=== PATIENT | female | born 1970 | race Caucasian/White ===

== ENCOUNTER → 2018-02-19 18:19 | Outpatient (REF) | payer OTHER, SELFPAY | LOC: NCHCN 18:19 | PROVIDERS: PCP Nurse Practitioner Family; Visit Provider Physician Assistant Medical | DX: J02.9 Acute pharyngitis, unspecified (principal) | CPT/HCPCS: 87077; 87070; 87186 ==

== ENCOUNTER 2021-03-15 12:45 | Outpatient (REF) | payer SELFPAY | END 2021-03-15 12:46 | disposition home or self-care (01) | LOC: NCHCN 12:45 | PROVIDERS: PCP Nurse Practitioner Family; Referring Provider Physician Assistant Medical; Visit Provider Physician Assistant Medical | DX: N39.0 Urinary tract infection, site not specified (principal) | CPT/HCPCS: 87077; 87086 ==

== ENCOUNTER 2021-08-04 17:49 | Outpatient (REF) | payer SELFPAY ==
[2021-08-05 12:26] LABS: COVID-19 RT-PCR UVMMC Result Negative (Negative)
== END 2021-08-04 17:50 | disposition home or self-care (01) ==
LOC: NCHCN 17:49
PROVIDERS: PCP Nurse Practitioner Family; Visit Provider Nurse Practitioner Family
DX: Z20.822 Contact with and (suspected) exposure to COVID-19 (principal); J02.9 Acute pharyngitis, unspecified; R51.9 Headache, unspecified
CPT/HCPCS: U0003

== ENCOUNTER 2022-05-03 23:26 | Outpatient (REF) | payer SELFPAY ==
[2022-05-03 21:16] LABS: TSH (W/Ref FT4) 1.33 uIU/mL (0.36-3.74)
[2022-05-04 18:24] LABS: Estradiol <12 pg/mL (See Note)
[2022-05-04 19:42] LABS: FSH 103.7 mIU/mL (See Note)
== END 2022-05-03 23:27 | disposition home or self-care (01) ==
LOC: NCHCN 23:26
PROVIDERS: PCP Nurse Practitioner Family; Visit Provider Physician Assistant Medical
DX: F32.9 Major depressive disorder, single episode, unspecified (principal); N95.1 Menopausal and female climacteric states
CPT/HCPCS: 82670; 83001; 84443

== ENCOUNTER → 2022-05-24 01:25 | Outpatient (CLI) | payer SELFPAY ==
--- NOTE | 2022-05-24 | DI.MAMMO_ITS ---
Exam(s) MAMMO SCREENING EXAM: MAMMO SCREENING CLINICAL HISTORY: SCREENING FOR BREAST CANCER Z12.31 TECHNIQUE: Mammograms were interpreted according to the usual protocol including computer analysis w Pixafy system, tomosynthesis and C-view imaging. COMPARISON: FINDINGS: The breasts are of moderate density with fairly symmetrical distribution of fibroglandular tissue. N o dominant mass or clumped microcalcification is identified in either breast. Current examination is compared with previous examination of November 2012 and allowing for differences in technique there has been no gross interval change in appearance in comparison with the prior study. IMPRESSION: No specific evidence of malignancy at this time. Routine screening examinations are suggested at yea rly intervals in this age group according to the ACS ACR guidelines. BI-RADS Category 1 - Negative Breast Density - Category B - Scattered areas of fibroglandular density
== END ==
PROVIDERS: PCP Nurse Practitioner Family; Visit Provider Physician Assistant Medical
DX: Z12.31 Encounter for screening mammogram for malignant neoplasm of breast (principal)
CPT/HCPCS: 77063; 77067

== ENCOUNTER 2022-08-21 06:46 | Emergency (ER) | payer SELFPAY ==
[2022-08-21 06:50] VITALS: BP 151/82; PULSE 87; RESP 24; TEMP 37.1; O2SAT 97
--- NOTE | 2022-08-21 07:09 | ED.GENADUL_ITS ---
Discharge Plan Discharge Details Chief Complaint: Orthopedic Primary Care Provider: Jeaneth Bentley ED Provider: Ara Cast Home Meds and New Rx's Prescriptions: No Action sumatriptan succinate [Imitrex] 50 MG tablet 50 mg PO ONCE topiramate [Topamax] 25 MG tablet 25 mg PO BID CHANTIX 0.5 QD PROZAC 20 MG capsule 40 mg PO BID Medical Decision Making 0710 -- 52-year-old female presents with left ankle and foot pain after twisting her ankle last night while walking. She has tenderness to palpation to her left inferior and posterior lateral malleolus and left fifth metatarsal. She is neurovascularly intact and has no deformity. Will give a dose of ibuprofen and refer for x-rays. 0800 --Case endorsed to Dr. Young to follow-up on imaging. Medical Records Medical records reviewed: Yes I reviewed the patient's medical records. HPI General Mode of arrival: ambulatory . Date/Time Provider Initiated Documentation: 08/21/22 06:56 . Limitations to Documentation: no limitations . Information obtained by: patient . HPI Narrative: Patient is a 52-year-old female who presents with left ankle and foot pain after she twisted her ankle while walking last night. Patient took a narcotic medication that she had leftover from a previous prescription last night without significant relief. Patient states she can take ibuprofen but takes it sparingly due to history of heartburn and denies a history of allergy to NSAIDs. She has not taken any ibuprofen or Tylenol this morning. She denies any knee pain. She states she is having a difficulty weightbearing on her left leg due to pain. Related Data Home Medications Medication Instructions Recorded Confirmed Chantix 0.5 Qd 11/07/12 05/23/22 Prozac 40 mg PO BID 11/07/12 05/23/22 sumatriptan succinate 50 mg tablet 50 mg PO ONCE 11/07/12 05/23/22 (Imitrex) topiramate 25 mg tablet (Topamax) 25 mg PO BID 11/07/12 05/23/22 Allergies Allergy/AdvReac Type Severity Reaction Status Date / Time aspirin Allergy Mild Nausea Unverified 05/23/22 09:59 bupropion HCl Allergy Skin Rash Unverified 05/23/22 09:59 [From Wellbutrin] General Stated Complaint: Orthopedic KEVYN: 4 Review of Systems All systems reviewed & are unremarkable except as noted in HPI and below Constitutional Constitutional: Reports as per HPI, Denies chills and Denies fever(s) Eyes Eyes: Denies blurry vision ENT Ears, Nose, Mouth, and Throat: Denies dizziness, Denies sore throat and Denies throat swelling Cardiovascular Cardiovascular: Denies chest pain and Denies dyspnea Respiratory Respiratory: Denies cough and Denies dyspnea Gastrointestinal Gastrointestinal: Denies abdominal pain, Denies diarrhea and Denies vomiting Genitourinary Genitourinary: Denies hematuria and Denies dysuria Musculoskeletal Musculoskeletal: Denies back pain and Denies numbness Comments: left ankle and foot pain Integumentary/Breasts Skin/Breast: Denies lesions and Denies rash Neurologic Neurologic: Denies dizziness, Denies localized weakness and Denies numbness Allergic/Immunologic Allergic/Immunologic: Denies throat swelling [facility] Medical History Fibrocystic breast disease Glucose intolerance (impaired glucose tolerance) Surgical History (Updated 08/21/22 @ 07:20 by Ara Cast DO) Decompression for spinal stenosis EGD - IV Sedation (04/21/16) H/O shoulder surgery Rotator Cuff Repair Vaginal hysterectomy Social History Smoking/Tobacco Use Status: Former Tobacco Use Smoking risk assessment performed?: Yes Drug use: Never Exam Const General: cooperative, healthy appearing and no acute distress HENMT Head: normal to inspection Mouth: oral mucosae normal Eyes General: appearance normal, both eyes and all related structures Neck Neck: normal visual inspection Resp Effort & Inspection: normal respiratory effort and able to speak in complete sentences Cardio Rate: regular rate Skin General skin exam: no rashes or lesions noted Neuro General: patient alert, patient awake and patient oriented x3 Motor: muscle tone normal throughout Extrem General: normal to inspection Ankle/foot/toe images: 1. Tenderness to palpation to left inferior and posterior lateral malleolus and left fifth metatarsal. There is no significant edema, ecchymosis or erythema. Other: No tenderness to palpation to left medial malleolus, left heel. Left DP/PT pulses intact. No deformity noted. Psych Appearance: grossly normal Affect: normal affect Course Vital Signs Vital signs: Vital Signs Temperature 98.7 F 08/21/22 06:50 Pulse 87 08/21/22 06:50 Respiratory Rate 24 08/21/22 06:50 Blood Pressure 151/82 H 08/21/22 06:50 Pulse Oximetry 97 08/21/22 06:50 Temperature 98.7 F 08/21/22 06:50 Temperature Source Tympanic 08/21/22 06:50 Pulse 87 08/21/22 06:50 Respiratory Rate 24 08/21/22 06:50 Blood Pressure 151/82 H 08/21/22 06:50 Blood Pressure Position Sitting 08/21/22 06:50 Pulse Oximetry 97 08/21/22 06:50 Oxygen Delivery Method Room Air 08/21/22 06:50 Oxygen Flow Rate 0 08/21/22 06:50
[2022-08-21] MEDS: Ibuprofen 600 MG TAB PO (07:22)
--- NOTE | 2022-08-21 07:34 | DI.RAD_ITS ---
Exam(s) XR FOOT LT COMPLETE XR ANKLE LT COMPLETE EXAM: XR ANKLE LT COMPLETE CLINICAL HISTORY: twisted left ankle, r/o fx TECHNIQUE: 2D digital imaging was performed. Three views. COMPARISON: CR,XR XR FOOT LT COMPLETE from 08/21/2022 FINDINGS: BONES: There is a nondisplaced fracture at the base of the 5th metatarsal. No additional acute fract ures are seen. There is a small corticated bony density seen beneath the lateral malleolus likely se condary to old trauma. No bony destructive lesion is seen. JOINTS:The ankle mortise is normally aligned. SOFT TISSUE: No foreign body. IMPRESSION: Nondisplaced fracture base of 5th metatarsal. DATA REPOSITORY: RADIATION DOSE DELIVERED:
--- NOTE | 2022-08-21 07:53 | ED.PROG_ITS ---
Date of service: 08/21/22 Time of Service: 07:53 Medical Decision Making Care was signed out by Dr. Cast, please see her documentation regarding initial ED presentation course. X-ray of the left ankle and foot were reviewed and interpreted by me: No definite fracture. X-ray interpreted by radiology: Nondisplaced fracture of the base of the fifth metatarsal in the left foot. We will place patient in short ankle/foot boot and provided crutches. Patient was instructed to maintain nonweightbearing and follow-up with orthopedics. Sign Out Sign Out Data: Sign Out Comment: Follow-up on x-ray results. Last updated by Ara Cast DO at 08/21/22 07:46 Discharge Plan Disposition Patient Disposition: Home Discharge Details Clinical Impression: Fracture of fifth metatarsal bone of left foot Primary Care Provider: Jeaneth Bentley ED Provider: Brian Young Home Meds and New Rx's Prescriptions: Continued PROZAC 20 MG capsule 40 mg PO DAILY estradiol 0.5 mg tablet 0.5 mg PO DAILY Patient Comments: TAKE 1 TABLET BY MOUTH EVERY DAY Discontinued sumatriptan succinate [Imitrex] 50 MG tablet 50 mg PO ONCE Patient Comments: not taking topiramate [Topamax] 25 MG tablet 25 mg PO BID Patient Comments: not taking CHANTIX 0.5 QD Patient Comments: not taking Discharge Instructions Instructions: Foot Fracture in Adults (ED) Additional Instructions: Please use orthopedic boot and crutches. Do not bear weight on left foot. Please follow-up with orthopedics. Please take ibuprofen over the counter. Take 600mg by mouth every 6 hours as needed for pain. Please take acetaminophen (tylenol) - 650mg every 6 hours by mouth as needed for pain. Return to the ER immediately for any worsening or new concerning symptoms. Stand Alone Forms: Work Release Referrals: [facility] [Provider Group] Jeaneth Bentley PA [Primary Care Provider] -
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
== END 2022-08-21 08:20 | disposition home or self-care (01) ==
PROVIDERS: Emergency Provider Student in an Organized Health Care Education/Training Program; PCP Physician Assistant Medical
DX: S92.355A Nondisplaced fracture of fifth metatarsal bone, left foot, initial encounter for closed fracture (principal); X50.1XXA Overexertion from prolonged static or awkward postures, initial encounter; Y93.01 Activity, walking, marching and hiking
CPT/HCPCS: 99283; 73610; 73630; 99282

== ENCOUNTER 2022-09-04 11:10 | Outpatient (CLI) | payer SELFPAY ==
--- NOTE | 2022-09-04 11:00 | DI.RAD_ITS ---
Exam(s) XR FOOT LT COMPLETE EXAM: XR FOOT LT COMPLETE CLINICAL HISTORY: 5th metatarsal fracture. TECHNIQUE: 2D digital imaging was performed. Three views. COMPARISON: CR,XR XR FOOT LT COMPLETE from 08/21/2022 FINDINGS: There has been no change in the alignment of the nondisplaced fracture at the base of the 5th metatar kenny. No new abnormalities are seen. DATA REPOSITORY: RADIATION DOSE DELIVERED:
== END 2022-09-04 11:11 | disposition home or self-care (01) ==
LOC: DIORS 11:10
PROVIDERS: PCP Physician Assistant Medical; Referring Provider Physician Assistant Medical; Visit Provider Physician Assistant
DX: S92.355D Nondisplaced fracture of fifth metatarsal bone, left foot, subsequent encounter for fracture with routine healing (principal); X58.XXXD Exposure to other specified factors, subsequent encounter
CPT/HCPCS: 73630

== ENCOUNTER 2023-05-29 15:21 | Emergency (ER) | payer OTHER, SELFPAY ==
[2023-05-29 15:27] VITALS: BP 137/71; PULSE 96; RESP 18; TEMP 36.7; O2SAT 99
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
== END 2023-05-29 18:00 | disposition home or self-care (01) ==
PROVIDERS: Emergency Provider Physician Assistant; PCP Physician Assistant Medical
DX: S33.6XXA Sprain of sacroiliac joint, initial encounter (principal); S93.401A Sprain of unspecified ligament of right ankle, initial encounter; S50.812A Abrasion of left forearm, initial encounter; R40.2412 Glasgow coma scale score 13-15, at arrival to emergency department; V43.52XA Car driver injured in collision with other type car in traffic accident, initial encounter
CPT/HCPCS: 99283; 72170; 73610

== ENCOUNTER 2023-08-10 13:29 | Outpatient (REF) | payer SELFPAY ==
--- OUTSIDE RECORDS SUMMARY | 2023-08-10 13:31 | XMS_ITS | Continuity of Care Document ---
Author Name Unknown Organization [facility] Address [address] [place] [id number] Encounter LTTL_MO FIN NBR [id number] Date(s): 05/02/22 - 05/02/[address] [id number]- Encounter Diagnosis Encounter for drug screening(Discharge Diagnosis) - 05/02/22 Discharge Disposition: Home or Self Care Attending Physician: Carmen Ozuna APRN Social History Social History Type Response Sex Female
== END 2023-08-10 13:30 | disposition home or self-care (01) ==
LOC: NCHCN 13:29
PROVIDERS: PCP Physician Assistant Medical; Visit Provider Nurse Practitioner Family
DX: J02.9 Acute pharyngitis, unspecified (principal)
CPT/HCPCS: 87070

== ENCOUNTER 2024-03-18 14:49 | Outpatient (REF) | payer OTHER, SELFPAY | END 2024-03-18 14:50 | disposition home or self-care (01) | LOC: NCHCN 14:49 | PROVIDERS: PCP Physician Assistant Medical; Visit Provider Physician Assistant Medical | DX: N76.0 Acute vaginitis (principal) | CPT/HCPCS: 87480; 87510; 87660 ==